=== PATIENT | male | born 1960 | race Caucasian/White ===

== ENCOUNTER 2017-03-09 07:37 | Emergency (ER) | payer BC ==
[~2017-03-09] VITALS: Ht 185.4 cm; Wt 91.0 kg
[~2017-03-09 07:37] MED LIST: OXYC-360 PO; TAMS0.4C67 PO; Z.0.NO CURRENT MEDS; ZOFR4TAB3 SL
[2017-03-09 07:44] VITALS: BP 131/71; PULSE 71; RESP 18; TEMP 98.7; O2SAT 97
[2017-03-09] MEDS ORDERED: TAMS0.4C4 PO ×2 (07:51→08:26)
[2017-03-09 08:05] LABS: BLOOD, URINE LARGE (NEG); GLUCOSE,URINE NEG (NEG); KETONE, URINE NEG (NEG); PH, URINE 5.5 (5.0-8.5)
[2017-03-09 08:06] LABS: NITRITE,URINE POS (NEG)
[2017-03-09 08:10] LABS: METHOD OF COLLECTION CLEAN CATCH; URINE COLOR YELLOW (YELLW/STRAW)
[2017-03-09 08:11] LABS: BACTERIA, URINE MANY /hpf; COMMENT (UR) CULTURE INDICATED; CULTURE IF INDICATED CULTURE INDICATED; RBC, URINE 0-3 /hpf (0-3)
[2017-03-09] MEDS ORDERED: CIPR-9 PO (08:26)
--- NOTE | 2017-03-09 08:31 | PD ---
HPI Chief Complaint: Complaint Time Seen by Provider: 08:11 Travel History International Travel<30 days: No Contact w/Intl Traveler<30days: No Traveled to known affect area: No History of Present Illness HPI This patient complains of dysuria and urinary hesitancy. He had subjective fever. He has no flank pain or vomiting. He did have some brief nausea but that has resolved. Symptoms severity was moderate. He has history of BPH but has run out of his Flomax [facility] Past Medical History Diminished Hearing: No Tetanus Vaccination: Unknown Influenza Vaccination: No Past Surgical History Abdominal Surgery: Yes (HERNIA REPAIR) Oral Surgery: Yes (TOOTH EXTRACTION) Social History Alcohol Use: No Tobacco Use: No Substance Use: No Allergies-Medications (Allergen,Severity, Reaction): Coded Allergies: No Known Allergies (Verified , 03/09/17) Reported Meds & Prescriptions Reported Meds & Active Scripts Active Cipro (Ciprofloxacin HCl) 500 Mg Tab 500 Mg PO BID Tamsulosin (Tamsulosin HCl) 0.4 Mg Cap 0.4 Mg PO HS Review of Systems General / Constitutional: Positive: Fever HENT: No: Headaches Cardiovascular: No: Chest Pain or Discomfort Respiratory: No: Cough Physical Exam Narrative GASTROINTESTINAL: Abdomen soft, non-tender, nondistended. Positive bowel sounds. No hepato-splenomegaly, or palpable masses. No guarding. SKIN: Focused skin assessment reveals no rash or ulcers. Skin is warm and dry. Palpation shows no induration or nodules. Psych: Normal mood and affect. Normal insight and judgment. Data Data Last Documented VS Vital Signs Date Time Temp Pulse Resp B/P Pulse Ox O2 Delivery O2 Flow Rate FiO2 03/09/17 07:44 98.7 71 18 131/71 97 Orders Urinalysis - C+S If Indicated (03/09/17 07:52) Urine Culture (03/09/17 07:47) Labs Laboratory Tests Test 03/09/17 07:47 Urine Collection Type CLEAN CATCH Urine Color YELLOW Urine Turbidity CLOUDY Urine pH 5.5 Urine Specific [place] 1.021 Urine Protein 30 mg/dL Urine Glucose (UA) NEG mg/dL Urine Ketones NEG mg/dL Urine Occult Blood LARGE Urine Nitrite POS Urine Bilirubin NEG Urine Leukocyte Esterase MOD Urine RBC 0-3 /hpf Urine WBC 25-49 /hpf Urine Bacteria MANY /hpf Microscopic Urinalysis Comment CULTURE INDICATED MDM Medical Decision Making Medical Screen Exam Complete: Yes Emergency Medical Condition: Yes Medical Record Reviewed: Yes Differential Diagnosis Cystitis, UTI, pyelonephritis Narrative Course I have reviewed the patient's electronic medical record. Urinalysis shows 25-50 white cells with bacteria I prescribed him 5 days of Cipro His urinary stasis may be a risk factor for UTI Refilled his Flomax for 1 month The patient was advised to follow up with their physician and return if they worsen. He looks clinically well with normal vital signs and benign exam Diagnosis Primary Impression: Urinary tract infection Qualified Code: N30.01 - Acute cystitis with hematuria Additional Instructions: The patient was advised to follow up with their physician and return if they worsen. Med/Other Pt SpecificInfo: Prescription(s) given Scripts Ciprofloxacin (Cipro)500 Mg [id number] Mg PO BID #10 TAB Ref 0 Prov:Crispin Tavares MD 03/09/17 Tamsulosin 0.4 Mg Cap0.4 Mg PO HS #30 CAP Ref 0 Prov:Crispin Tavares MD 03/09/17 Disposition: DISCHARGE HOME Condition: Stable Crispin Tavares MD March 09, 2017 08:31
== END 2017-03-09 08:37 | disposition home or self-care (01) ==
LOC: PHED 07:37
DX: N30.01 Acute cystitis with hematuria (principal); B96.20 Unspecified Escherichia coli [E. coli] as the cause of diseases classified elsewhere
CPT/HCPCS: 81001; 87077; 87086; 87186; 99283

== ENCOUNTER 2018-01-19 16:54 | Emergency (ER) | payer BC ==
[~2018-01-19] VITALS: Ht 185.4 cm; Wt 86.0 kg
[~2018-01-19 16:54] MED LIST changes: +CIPR-9 PO; -OXYC-360 PO; +TAMS0.4C4 PO; -TAMS0.4C67 PO; -Z.0.NO CURRENT MEDS; -ZOFR4TAB3 SL
[2018-01-19 17:11] VITALS: BP 122/83; PULSE 67; RESP 16; TEMP 98; O2SAT 98
[2018-01-19] MEDS ORDERED: ACETAMINOPHEN/HYDROcodone 325 MG/5 MG TAB PO ONE (18:15)
[2018-01-19] MEDS ORDERED: MORPHINE SULFATE 2 MG/ML INJ IM ONE (18:30)
[2018-01-19] MEDS ORDERED: KETOROLAC TROMETHAMINE 60 MG/2 ML (IM) VIAL IM ONE (18:30)
[2018-01-19] MEDS ORDERED: ONDANSETRON ODT 4 MG TAB PO ONE (18:30)
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
[2018-01-19] MEDS ORDERED: DICL75TA PO (19:04)
[2018-01-19] MEDS ORDERED: HYDR-3516 PO (19:04)
== END 2018-01-19 20:04 | disposition home or self-care (01) ==
LOC: PHED 16:54 → PHEFT 20:04
DX: S43.101A Unspecified dislocation of right acromioclavicular joint, initial encounter (principal); T14.8XXA Other injury of unspecified body region, initial encounter; V28.0XXA Motorcycle driver injured in noncollision transport accident in nontraffic accident, initial encounter
CPT/HCPCS: 71045; 72100; 73030; 96372; 99284; J1885

== ENCOUNTER → 2018-01-27 | Day surgery (SDC) | payer BC ==
[~2018-01-27] VITALS: Ht 185.4 cm; Wt 85.3 kg
[~2018-01-27] MED LIST changes: +*morphine SULFATE 10 MG/ML PERIprocedure ONLY ONE; +ACETAMINOPHEN/HYDROcodone 325 MG/10 MG TAB PO PRN; -CIPR-9 PO; +DEXAMETHASONE SOD PHOS 4 MG/ML VIAL IV ONE; +DICL75TA PO; +DO NOT ADM ANY ANTICOAGULANT DRUGS PRN; +GENTAMICIN SULFATE 80 MG/2 ML VIAL ONE; +GLYCOPYRROLATE 1 MG/5 ML SYRINGE IV PUSH ONE; +HYDR-3516 PO; +LIDOCAINE HCL 1% PF 5 ML SYRINGE OTHER ONE; +MIDAZOLAM HCL 2 MG/2 ML VIAL ONE; +MORPHINE SULFATE 4 MG/ML INJ IV PUSH PRN; +NEOSTIGMINE 5 MG/5 ML SYRINGE IV PUSH ONE; +ONDANSETRON HCL 4 MG/2 ML VIAL IV ONE; +ONDANSETRON HCL 4 MG/2 ML VIAL IV PUSH PRN; +PROPOFOL 200 MG/20 ML AMP IV ONE; +ROCURONIUM INJ 50 MG/5 ML SYRINGE IV PUSH ONE; +SODIUM CHLOR 0.9% 250 ML INJ 0 ML ONE; +SODIUM CHLORIDE 0.9% FLUSH 10 ML FLUSH IV FLUSH PRN; +SODIUM CHLORIDE 0.9% FLUSH 10 ML FLUSH IV FLUSH SCH; -TAMS0.4C4 PO; +VANCOMYCIN HCL 1000 MG VIAL ONE; +ceFAZolin INJ 1,000 MG VIAL ONE; +ePHEDrine/NS 25 MG/5 ML SYRINGE IV ONE
--- NOTE | 2018-01-27 10:34 | PD.OP ---
cc: Dinesh Weinberg MD Operative Report Date of Surgery: Jan 27, 2018 Preoperative Diagnosis: Complete right shoulder acromioclavicular joint dislocation Postoperative Diagnosis: Procedure: Open reduction internal fixation right acromioclavicular joint with allograft tendon reconstruction Anesthesia: Gen. Surgeon: Dinesh Weinberg Sole Painter(s): ZULMA Penn PA-C The surgical procedure was assisted by my physician ob gyn physician assistant. My P.A. presence was necessary throughout this case for the manipulation and positioning of the surgical extremity. My P.A. was assisting me throughout the duration of this procedure. The skill set of a physician ob gyn physician assistant was medically necessary to complete this procedure. During the surgical case the operating room surgical technologist was working at the back table and the physician ob gyn physician assistant was directly assisting me. Operation and Findings: Implants used: Synthes Plan of activity: Sling, nonweightbearing left arm Patient was seen and evaluated preoperatively. Patient was found to have a displaced right acromioclavicular joint dislocation. The risks and benefits of surgical and nonsurgical options were discussed in detail and informed consent was obtained for surgery. Patient was brought to the operating room and placed on or table. IV sedation and GETA were administered by anesthesiologist. Antibiotics were given prior to incision. Operative arm and shoulder were prepped with alcohol followed by Hibiclens and draped usual sterile fashion. Timeout procedure was performed. Procedure began with a 4 inch incision over the distal clavicle. Subcutaneous tissue was dissected with Bovie. The AC joint was now visualized. Soft tissue was retracted. The joint was cleaned with curettes and rounger. At this point attention was turned towards allograft tendon reconstruction. An allograft posterior tibialis tendon was thawed in saline. Next #1 Prolene suture was placed into one end of the tendon. At this point a drill tunnel was made in the clavicle from superior to inferior. Using a Hewson suture passer the Prolene suture was passed underneath the coracoid process. The allograft tendon was now pulled through under the coracoid process. Next the tendon was placed through the bone tunnel of the clavicle. Attention was now turned to reduction of the AC joint. A Synthes plate was selected. The hook of the plate was placed underneath the acromion. The plate was now reduced to the clavicle. The plate was used to reduce the clavicle to the acromion. Multiplanar fluoroscopy confirmed well aligned joint. 3.5 cortical screws were used to compress plate to bone. Fluoroscopy confirmed appropriate plate placement and AC joint reduction. All Screws were predrilled and premeasured for appropriate length. Care was taken to avoid injury to neurovascular structures. At this point the allograft tendon was sutured in place. The tendon graft was tensioned appropriately and sewn together with #1 Vicryl. Final fluoroscopy revealed well aligned AC joint with well-placed hardware. Wound was thoroughly irrigated. Fascia was closed with # 0 Vicryl, subcutaneous tissues closed with 3-0 Vicryl, and skin was closed with diony. Sterile dressings were applied. Patient was placed into a sling. Patient was awakened and transferred to recovery in stable condition. Needle and sponge counts were correct. Dinesh Weinberg MD Jan 27, 2018 10:34
--- NOTE | 2018-01-27 11:04 | RADRPT ---
EXAM DATE/TIME: 01/27/2018 09:58 [facility] COMPARISON: No previous studies available for comparison. INDICATIONS : Open reduction internal fixation right clavicle. MEDICAL HISTORY : None. SURGICAL HISTORY : None. ENCOUNTER: Initial ACUITY: 1 day PAIN SCORE: Non-responsive. LOCATION: Right Clavicle FINDINGS: Abdominal alignment following reduction of acromio clavicular separation.. CONCLUSION: Anatomic alignment Forrest Hannah MD FACR on January 27, 2018 at 11:01 Board Certified Radiologist. This report was verified electronically.
[2018-01-27 13:24] VITALS: BP 115/70; PULSE 73; RESP 20; TEMP 98; O2SAT 97
--- NOTE | 2018-01-27 20:17 | EKG ---
Date Performed: 01/27/2018 Time Performed: 06:47:23 PTAGE: 57 years EKG: SINUS BRADYCARDIA BORDERLINE ECG PREVIOUS TRACING : 01/28/2007 08.12 Since the previous tracing, no significant change noted DOCTOR: Rosas Ramirez Interpretating Date/Time 01/27/2018 20:15:50
== END | disposition home or self-care (01) ==
LOC: HSDC 05:31
PROVIDERS: ATTEND Orthopaedic Surgery Orthopaedic Trauma
DX: S43.101A Unspecified dislocation of right acromioclavicular joint, initial encounter (principal); Z01.810 Encounter for preprocedural cardiovascular examination
CPT/HCPCS: 01630; 23550; 73000; 76000; 93005; C1713; J0690; J1100; J1580; J2250; J2270; J2405; J2710; J3010; J3370; J7050